=== PATIENT | female | born 1980 | race Caucasian/White ===

== ENCOUNTER 2017-05-05 18:47 | Emergency (ER) | payer OTHER ==
[~2017-05-05] VITALS: Ht 175.3 cm; Wt 124.7 kg
[~2017-05-05 18:47] MED LIST: IBUPROFEN
[2017-05-05 18:55] VITALS: BP_SYST 159
--- NOTE | 2017-05-05 20:11 | NUR ---
Pt to [facility] chair 1 for exam.
--- NOTE | 2017-05-05 20:15 | NUR ---
Susan Ovalle [employer] at bedside examining patient
--- NOTE | 2017-05-05 20:20 | NUR ---
Pt brought by self, A&Ox4, pt c/o cough and congestion , pt states she went to urgent care and was given a breathing treatment but not improving, skin pink and warm, cap refill <3, VS WNL.
[2017-05-05 21:10] VITALS: BP_SYST 142
--- NOTE | 2017-05-05 21:14 | NUR ---
Patient given written and verbal discharge instructions and verbalizes understanding. ER MD discussed with patient the results and treatment provided. Patient in stable condition. ID arm band removed. No prescriptions given. Patient educated on pain management and to follow up with PMD. Pain Scale 0/10. Opportunity for questions provided and answered.
== END 2017-05-05 21:10 | disposition home or self-care (01) ==
LOC: SED 18:47
DX: J06.9 Acute upper respiratory infection, unspecified (principal); J45.909 Unspecified asthma, uncomplicated; I10 Essential (primary) hypertension; Z88.1 Allergy status to other antibiotic agents
CPT/HCPCS: 36415; 71010; 86710; 99285